=== PATIENT | male | born 1960 | race Caucasian/White ===

== ENCOUNTER 2022-02-01 09:59 | Outpatient (CLI) | payer MEDICARE, MEDICAID, SELFPAY | END 2022-02-01 10:00 | disposition home or self-care (01) | PROVIDERS: PCP Internal Medicine; Visit Provider Internal Medicine | DX: H90.6 Mixed conductive and sensorineural hearing loss, bilateral (principal) | CPT/HCPCS: 92557; 92567 ==

== ENCOUNTER 2022-11-25 12:50 | Outpatient (CLI) | payer MEDICARE, MEDICAID, SELFPAY | END 2022-11-25 12:51 | disposition home or self-care (01) | LOC: ANHBWCAUD 12:52 | PROVIDERS: PCP Internal Medicine; Visit Provider Internal Medicine | DX: H90.3 Sensorineural hearing loss, bilateral (principal) | CPT/HCPCS: 92557; 92567 ==

== ENCOUNTER 2024-10-02 09:27 | Outpatient (CLI) | payer MEDICARE, MEDICAID, SELFPAY | END 2024-10-02 09:28 | disposition home or self-care (01) | LOC: ANHBWCAUD 09:28 | PROVIDERS: PCP Internal Medicine | DX: H91.93 Unspecified hearing loss, bilateral (principal) | CPT/HCPCS: 92557; 92567 ==

== ENCOUNTER 2024-10-15 13:12 | Outpatient (CLI) | payer MEDICARE, MEDICAID, SELFPAY | END 2024-10-15 13:13 | disposition home or self-care (01) | LOC: ANHBWCAUD 13:13 | PROVIDERS: PCP Internal Medicine; Visit Provider Internal Medicine | DX: H91.93 Unspecified hearing loss, bilateral (principal) | CPT/HCPCS: 92557; 92567 ==

== ENCOUNTER 2025-10-15 08:47 | Outpatient (CLI) | payer MEDICARE, MEDICAID, SELFPAY | END 2025-10-15 08:48 | disposition home or self-care (01) | PROVIDERS: PCP Internal Medicine; Visit Provider Internal Medicine | DX: H90.3 Sensorineural hearing loss, bilateral (principal) | CPT/HCPCS: 92557; 92567 ==